=== PATIENT | male | born 1945 | race Caucasian/White ===

== ENCOUNTER 2017-04-04 10:57 | Outpatient (CLI) | payer MEDICARE, OTHER ==
[~2017-04-04] VITALS: Ht 177.8 cm; Wt 95.5 kg
--- NOTE | ~2017-04-04 | HEMODYNAMI ---
PATIENT:CHERYLE BERNARDO MEDICAL RECORD: [id number] : 41 LOCATION:DPETER ADMISSION DATE: 04/04/17 Generatedon:04/04/201714:14 Patient name: CHERYLE BERNARDO Patient #: [id number] SSN: : 1945 Date of study: 04/04/2017 Page: Of Hemodynamic Procedure Report Patient Data Patient Demographics Procedure consent was obtained First Name: CHERYLE Gender: Male Last Name: TOVA : 1945 [facility] Initial: [place] Age: 72 year(s) Patient #: [id number] Race: Unknown Additional ID: [id number] Contact details [address]: [address] [place] [address] State: [place] City: [place] Zip code: [address] Past Medical History Allergies: No known allergies Admission Admission Data Admission Date: 04/04/2017 Admission Time: 10:57 Admit Source: Other Procedure Procedure Types Cath Procedure Diagnostic Procedure LHC LHC w/Coronaries Miscellaneous Procedures Moderate Sedation up to 15 minutes Procedure Description Procedure Date Procedure Date: 04/04/2017 Procedure Start Time: 13:53 Procedure End Time: 14:10 Procedure Staff Name Function Kevin Munguia MD Performing Physician Lux Jackson RN Nurse Ruben Mccollum RT Scrub Nena Roche RT Monitor April Cole RN Nurse Procedure Data Cath Procedure Fluoroscopy Diagnostic fluoroscopy Total fluoroscopy Time: 2.9 time: 2.9 min min Diagnostic fluoroscopy Total fluoroscopy dose: 305 dose: 305 mGy mGy Contrast Material Contrast Material Type Amount (ml) Isovue 300 76 Entry Location Entry Primary Successful Side Size Upsize Upsize Entry Closure Schulz ccessful Closure Location (Fr) 1 (Fr) 2 (Fr) Remarks Device Remarks Radial Right 6 Fr Mechanical TR band artery Short Compression Femoral Right 5 Fr Exoseal artery Estimated blood loss: 10 ml Diagnostic catheters Device Type Used For End Catheter Placement Diagnostic Terumo 5Fr Procedure Armstrong 110cm catheter Cordis 5Fr JL 4.0 Procedure Catheter (MP) Cordis 5Fr 3DRC Catheter Procedure (MP) Cordis 5Fr Pigtail Procedure Catheter (MP) Procedure Complications No complications Procedure Medications Medication Administration Route Dosage Oxygen NC 2 l/min Heparin Flush Bag added to field 2 bags (1000units/500ml NS) 0.9% NaCl I.V. 100 ml/hr Radial Cocktail added to field 1 syringe (Verapomil 2mg/Nitro 400mcg/Heparin 1500units) Fentanyl I.V. 50 mcg Versed I.V. 1 mg Fentanyl I.V. 50 mcg Versed I.V. 1 mg Fentanyl I.V. 50 mcg Radial Cocktail I.A. 1 syringe (Verapomil 2mg/Nitro 400mcg/Heparin 1500units) Fentanyl I.V. 25 mcg Hemodynamics Rest Heart Rate: 44 (bpm) Pressure Samples Time Site Value (mmHg) Purpose Heart Use Rate(bpm) 14:04 LV 139/16,21 Snapshot 86 14:05 AO 159/58(106) Pullback 82 Gradients Valve Time Site Site 2 Mean SEP/DFP Peak To Heart Use 1 (mmHg) (sec/min) Peak Rate (mmHg) (bpm) Aortic 14:05 LV AO 15 20 82 159/58(106) Calculations Valve P-P Mean Valve Index Valve Source Name Gradient Area Flow (cm2) Aortic 15 15 Snapshots Pre Cath Intra NCS Post Cath Vital Signs Time Heart Resp SPO2 NIBP (mmHg) Rhythm Pain Sedation Rate (ipm) (%) Status Level (bpm) 13:32:14 70 19 98 104/82(103) NSR 0 (11) 10(A) , No pain 13:37:17 57 17 98 144/76(109) NSR 0 (11) 10(A) , No pain 13:42:25 62 16 100 130/75(95) NSR 0 (11) 10(A) , No pain 13:47:20 62 16 95 129/81(97) NSR 0 (11) 10(A) , No pain 13:51:34 68 17 95 122/74(85) NSR 0 (11) 10(A) , No pain 13:55:46 71 18 97 122/68(95) NSR 0 (11) 9(A) , No pain 13:59:57 79 17 96 119/78(98) NSR 0 (11) 9(A) , No pain 14:04:07 74 16 96 119/80(104) NSR 0 (11) 9(A) , No pain 14:08:15 79 15 95 132/83(112) NSR 0 (11) 10(A) , No pain Medications Time Medication Route Dose Verified Delivered Reason Notes Effectiveness by by 13:32:29 Oxygen NC 2 l/min Lux Wasserman Per Manuel Jackson RN physician RN 13:32:38 Heparin Flush added 2 bags Lux Wasserman used for Bag to Manuel Jackson RN procedure (1000units/500ml field RN NS) 13:32:50 0.9% NaCl I.V. 100 Lux Lux Per ml/hr Manuel Jackson RN physician RN 13:32:59 Radial Cocktail added 1 Lux Wasserman used for (Verapomil to syringe Manuel Jackson RN procedure 2mg/Nitro RN 400mcg/Heparin 1500units) 13:46:44 Fentanyl I.V. 50 mcg Lux Wasserman for sedation Manuel Jackson RN RN 13:46:51 Versed I.V. 1 mg Lux Wasserman for sedation Manuel Jackson RN RN 13:51:22 Fentanyl I.V. 50 mcg Lux Wasserman for sedation Manuel Jackson RN RN 13:51:26 Versed I.V. 1 mg Lux Wasserman for sedation Manuel Jackson RN RN 13:54:48 Fentanyl I.V. 50 mcg Lux Namy for sedation Manuel Jackson RN RN 13:58:00 Radial Cocktail I.A. 1 Lux Kleinory for ([facility]/Nitro GEOVANNY PRUETT 400mcg/Heparin 1500units) 14:00:54 Fentanyl I.V. 25 mcg Lux Lux for sedation Manuel Jackson RN collection administrator Log Time Note 12:47:39 Informed consent obtained and on chart 12:47:43 Admit Source: Other 13:21:46 Diagnostic Cath status Elective 13:21:59 Lux Jackson RN sent for patient. Start room use. 13:22:17 Time tracking: Regular hours 13:22:25 Plan of Care:Hemodynamics will remain stable., Cardiac rhythm will remain stable., Comfort level will be maintained., Respiratory function will remain adequate., Patient/ family verbilizes understanding of procedure., Procedure tolerated without complication., Recovers from procedure without complications.. 13:29:29 Patient received from Pre/Post Procedure Room to CCL 3 Alert and oriented. Tansferred to table in Supine position. 13:29:31 Warm blankets applied, and luis hugger turned on for patient comfort. 13:29:32 Correct patient and procedure confirmed by team. 13:29:34 ECG and BP/O2 sat monitors applied to patient. 13:29:36 Vital chart was started 13:29:39 Baseline sample Acquired. 13:29:41 Baseline sample Acquired. 13:29:46 Full Disclosure recording started 13:30:04 H&P Date Dictated: 04/02/2017 Within 30 days and on chart., H&P Addendum completed by physician on day of procedure. (MUST COMPLETE FOR ALL OUTPATIENTS). 13:30:06 Pre-procedure instructions explained to patient. 13:30:08 Family in waiting room. 13:30:12 Patient NPO since Midnight. 13:30:18 Patient allergic to No known allergies 13:30:22 Is the patient allergic to Iodine/contrast media? No. 13:30:23 Is patient on blood thinner?No 13:30:27 Patient diabetic? No. 13:30:36 Previous problem with sedation/anesthesia? No ? 13:30:42 Snore? Yes 13:30:43 Sleep apnea? Yes 13:30:53 Airway obstruction? Yes COPD 13:31:04 Dentures? No ? 13:31:11 Patient pain scale 0/10 ?. 13:31:17 IV patent on arrival in left forearm with 0.9% NaCl at KVO. 13:31:21 ECG and BP/O2 sat monitors applied to patient. 13:31:43 Lab results completed and on chart. 13:31:47 Right Radial & Right Groin area was prepped with chlora-prep and draped in sterile fashion 13:31:49 Alarms reviewed by R. N. 13:31:49 Sharps counted by scrub and verified by R.N. 13:31:50 Physician paged 13:31:52 Physician arrived 13:32:29 Oxygen 2 l/min NC was administered by Lux Jackson RN; Per physician; 13:32:38 Heparin Flush Bag (1000units/500ml NS) 2 bags added to field was administered by Lux Jackson RN; used for procedure; 13:32:50 0.9% NaCl 100 ml/hr I.V. was administered by Lux Jackson RN; Per physician; 13:32:59 Radial Cocktail (Verapomil 2mg/Nitro 400mcg/Heparin 1500units) 1 syringe added to field was administered by Lux Jackson RN; used for procedure; 13:40:54 Baseline sample Acquired. 13:41:03 Use device set Radial Dx 13:41:05 Acist Syringe opened to sterile field. 13:41:05 Medline Cath Pack opened to sterile field. 13:41:05 Bag Decanter opened to sterile field. 13:41:06 Terumo 6Fr Slender Glidesheath opened to sterile field. 13:41:06 St Asif 260cm J .035 wire opened to sterile field. 13:41:07 Acist Hand Control opened to sterile field. 13:41:07 Acist Manifold opened to sterile field. 13:41:08 Tegaderm 4 x 4 opened to sterile field. 13:41:08 MBrace Wrist Support opened to sterile field. 13:46:23 --------ALL STOP TIME OUT------ 13:46:23 Final Timeout: patient, procedure, and site verified with staff and physician. All members of the team are in agreement. 13:46:26 Right Radial & Right Groin site verified by team. 13:46:30 Physical assessment completed. ASA score P 2 - A patient with mild systemic disease as per Kevin Munguia MD. 13:46:36 Sedation plan: IV Moderate Sedation Versed, Fentanyl 13:46:44 Fentanyl 50 mcg I.V. was administered by Lux Jackson RN; for sedation; 13:46:51 Versed 1 mg I.V. was administered by Lux Jackson RN; for sedation; 13:49:19 Zero performed for pressure channel P1 13:49:46 Zero performed for pressure channel P1 13:49:55 Zero performed for pressure channel P1 13:51:22 Fentanyl 50 mcg I.V. was administered by Lux Jackson RN; for sedation; 13:51:26 Versed 1 mg I.V. was administered by Lux Jackson RN; for sedation; 13:52:30 Procedure started. 13:53:47 Local anesthetic to right radial artery with Lidocaine 2% by Kevin Munguia MD.INITIAL ACCESS ONLY 13:53:59 A 6 Fr Short sheath was inserted into the Right Radial artery 13:54:46 A Diagnostic Terumo 5Fr Armstrong 110cm catheter was advanced over the wire and used for Procedure. 13:54:48 Fentanyl 50 mcg I.V. was administered by Lux Jackson RN; for sedation; 13:57:03 Catheter removed. 13:57:14 Use device set Multipack Set 13:57:28 Terumo 5Fr [place] Sheath opened to sterile field. 13:57:30 Diagnostic Infinity 5Fr Multipack catheter opened to sterile field. 13:57:39 Local anesthetic to right femoral artery with Lidocaine 2% by Kevin Munguia MD.ADDITIONAL ACCESS 13:58:00 Radial Cocktail (Verapomil 2mg/Nitro 400mcg/Heparin 1500units) 1 syringe I.A. was administered by Kevin Munguia MD; for vasodilation; 13:58:10 A 5 Fr sheath was inserted into the Right Femoral artery 13:59:07 A Cordis 5Fr JL 4.0 Catheter (MP) was advanced over the wire and used for Procedure. 14:00:54 Fentanyl 25 mcg I.V. was administered by Lux Jackson RN; for sedation; 14:02:08 Catheter removed. 14:02:30 A Cordis 5Fr 3DRC Catheter (MP) was advanced over the wire and used for Procedure. 14:03:48 Catheter removed. 14:04:03 A Cordis 5Fr Pigtail Catheter (MP) was advanced over the wire and used for Procedure. 14:05:29 EF : 55 % 14:05:32 Catheter removed. 14:05:47 Cordis 5Fr Exoseal opened to sterile field. 14:05:47 Terumo TR Band Standard opened to sterile field. 14:06:06 Sheath removed intact; hemostasis achieved with Exoseal to the Right Femoral artery. 14:06:26 Sheath removed intact; hemostasis achieved with Mechanical Compression to the Right Radial artery. 14:06:31 Procedure ended.(Physican Out) 14:06:52 Fluoroscopy time 02.90 minutes. 14:06:59 Fluoroscopy dose: 305 mGy 14:06:59 Flurop Dose total: 305 14:07:14 Contrast amount:Isovue 300 76ml. 14:07:16 Sharps counted by scrub and verified by R.N. 14:07:21 TR band inflated with 10cc of air. 14:07:22 Insertion/operative site no bleeding no hematoma. 14:07:27 Post right femoral artery:stable 14:07:28 Post Procedure Pulses reassessed and unchanged 14:07:33 Post-procedure physical assessment completed. ASA score P 2 - A patient with mild systemic disease as per Kevin Munguia MD. 14:08:17 Post procedure rhythm: unchanged. 14:08:25 Estimated blood loss: 10 ml 14:08:28 Post procedure instruction explained to patient.Patient verbalizes understanding. 14:08:40 Procedure type changed to Cath procedure, Diagnostic procedure, LHC, LHC w/Coronaries, Miscellaneous Procedures, Moderate Sedation up to 15 minutes 14:08:41 Procedure and supply charges have been captured, reviewed, submitted and are correct. 14:09:04 Procedure Complication : No complications 14:09:43 Vital chart was stopped 14:09:45 See physician's report for complete and final results. 14:09:55 Report given to Pre/Post Procedure Room. 14:09:59 Patient transfered to Pre/Post Procedure Room with Stretcher. 14:10:02 Procedure ended. 14:10:02 Full Disclosure recording stopped Device Usage Item Name Manufacture Quantity Catalog Hospital Part Current Minimal Lot# / Number Charge Number Stock Stock Serial# Code Acist Acist 1 91015 723347 048129 416750 20 Syringe Medical Systems Inc Medline Cardinal 1 [id number] 622239 92180 331504 5 Cath Pack Health Bag Microtek 1 2001S 565201 60805 150353 5 Decanter [employer] Inc. Terumo 6Fr Terumo 1 [id number] 587929 615691 481759 [address] Asif St Asif 1 436233 503148 319774 500821 30 260cm J .035 wire Acist Hand Acist 1 96953 104827 992587 157827 5 Control Medical Systems Inc Acist Acist 1 20277 234092 292995 164830 5 Manifold Medical Systems Inc Tegaderm 4 3M 1 1626W 236932 110843 509201 5 x 4 MBrace Advanced 1 140-0250-00 490509 89208 356237 5 Wrist Vascular Support Dynamics Diagnostic Terumo 1 40-5855 356248 978805 536160 5 Terumo 5Fr Armstrong 110cm catheter Terumo 5Fr Terumo 1 [id number] 681821 092008 901832 40 [place] Sheath Diagnostic Cardinal 1 [id number] 941693 48933 543698 30 Infinity Health 5Fr Multipack catheter Cordis 5Fr Cardinal 1 098822 5 JL 4.0 Health Catheter (MP) Cordis 5Fr Cardinal 1 585865 5 3DRC Health Catheter (MP) Cordis 5Fr Cardinal 1 224484 5 Pigtail Health Catheter (MP) Cordis 5Fr Cardinal 1 EX500 271440 673611 318044 10 [facility] Health Terumo TR Terumo 1 [id number] 847752 531222 230605 40 Band Standard Signature Audit [place] Stage Time Signature Unsigned Intra-Procedure 04/04/2017 Nena Roche 2:14:37 PM RT(R) Signatures Monitor : Nena Roche Signature : RT Date : Time : [place] [address] [place] [address]
[~2017-04-04 10:57] MED LIST: AMBIEN10 MG PO; LIPITOR40 MG PO; LISINOPRIL10 MG PO; PLAVIX75 MG PO
[2017-04-04 11:26] VITALS: BP 177/79; Ht 177.8 cm; Wt 95.5 kg
[2017-04-04] MEDS ORDERED: BAYER CHEWABLE81 MG PO (11:30)
[2017-04-04 11:35] LABS: BASOPHILS 0.8 % (0-2); EOSINOPHILS 5.1 % (0-7); HEMATOCRIT 49.5 % (42.0-54.0); HEMOGLOBIN 16.9 g/dL (13.5-17.5); IMMATURE GRANULOCYTES 0.4 % (0-5); LYMPHOCYTES 17.5 % (15-50); MCH 32.5 pg (26.0-34.0); MCHC 34.1 g/dL (31.0-37.0); MCV 95.2 fL (80.0-100.0); MEAN PLATELET VOLUME 10.9 fL (7.4-10.4); MONOCYTES 9.1 % (2-11); NEUTROPHILS 67.1 % (40-80); PLATELET COUNT 191 10x3/uL (130-400); RDW 13.2 % (11.5-14.5); WBC 7.2 10x3/uL (4.8-10.8)
[2017-04-04 11:49] LABS: CALC OSMOLALITY 282 mosm/kg (275-300); CALCIUM 8.2 mg/dL (8.5-10.1); CHLORIDE - SERUM 106 mmol/L (98-107); GLUCOSE 105 mg/dL (74-106); POTASSIUM - SERUM 4.3 mmol/L (3.5-5.1); SODIUM 141 mmol/L (136-145); UREA NITROGEN 17 mg/dL (7-18); eGFR NON AFRICAN AMERICAN 78 mL/min (90-120)
--- NOTE | 2017-04-04 14:25 | NUR ---
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 PT IS DROWSY, DENIES ANY C/O. TR BAND TO RIGHT WRIST IS CDI, AREA FREE FROM BLEEDING OR HEMATOMA. FINGERS WARM AND CAP REFILL IS BRISK. DRESSING TO RIGHT GROIN IS CDI, AREA SOFT AND NONTENDER. PEDAL PULSES PALPABLE. PT INSTRUCTED TO KEEP RIGHT LEG STRAIGHT AND HEAD TO PILLOW AND PT VERBALIZES UNDERSTANDING. VSS. SINUS RHYTHM WITH PVC'S ON MONITOR. RR EVEN AND UNLABORED.
--- NOTE | 2017-04-04 14:47 | NUR ---
1440 VSS, AT BEDSIDE. CATH SITES FREE FROM BLEEDING OR HEMATOMA.
--- NOTE | 2017-04-04 15:03 | NUR ---
1500 PO FLUIDS SERVED. AT BEDSIDE. VSS. RR EVEN AND UNLABORED. CALL LIGHT IN REACH. DRESSINGS ARE BOTH CDI, NO BLEEDING OR HEMATOMA.
--- NOTE | 2017-04-04 15:20 | NUR ---
1520 TR BAND DEFLATION BEGUN WITH NO BLEEDING OR HEMATOMA NOTED. DRESSING TO RIGHT GROIN IS CDI, AREA IS SOFT AND NONTENDER. PEDAL PULSES PALPABLE. PT DENIES ANY C/O. KIM PO FLUIDS WITH NO C/O NAUSEA. STATES DOES NOT WANT A SANDWICH AT THIS TIME. AT BEDSIDE. CALL LIGHT IN REACH, VSS.
--- NOTE | 2017-04-04 16:05 | NUR ---
1550 DR HENLEY HAS ROUNDED ON PT. PT DENIES NEEDS AT THIS TIME. TR BAND WITH NO BLEEDING OR HEMATOMA NOTED. FINGERS WARM AND CAP REFILL IS BRISK. PT DENIES NEEDS AT THIS TIME.
--- NOTE | 2017-04-04 16:43 | NUR ---
1620 TR BAND DEFLATION COMPLETE, NO BLEEDING OR HEMATOMA NOTED. EXOSEAL DRESSING TO RIGHT GROIN IS CDI, NO BLEEDING OR HEMATOMA NOTED. AREA SOFT AND NONTENDER. IV DC'D WITH CATH INTACT. REVIEWED DC INSTRUCTIONS WITH PT AND WHO VERBALIZE UNDERSTANDING. 1630 PT AMBULATED TO THE BATHROOM AND VOIDED QS. 1635 2X2/TEGADERM TO WRIST CATH SITE IS CDI, NO BLEEDING OR HEMATOMA. RIGHT GROIN DRESSING STABLE WITH NO BLEEDING OR HEMATOMA. PT DENIES ANY C/O UPON DC. PT ESCORTED TO PRIVATE AUTO VIA WC BY NURSE WITH DRIVING HIM HOME.
--- NOTE | 2017-04-05 11:07 | OP ---
PATIENT NAME: CHERYLE BERNARDO MEDICAL RECORD: [id number] :41 LOCATION:D.CAT ADMISSION DATE: SURGEON: ANUM HENLEY MD DATE OF OPERATION: 04/04/2017 PROCEDURES: Left heart catheterization, selective coronary angiography, right femoral artery approach. CATHETERS: A 5-Bahamian sheath, 5/4 left and right Darrius, 5/4 pig. The procedure was well tolerated. The patient returned to sahu. Sheath removed. ExoSeal device placed. FINDINGS: Left ventriculography in 30-degree ZARATE view: Normal wall motion, normal systolic function. CORONARY ANATOMY: LEFT MAIN: Left main is free of disease. LAD: Free of disease in the diagonal system. Area of previous stenting is widely patent. CIRCUMFLEX: Free of disease. RIGHT CORONARY ARTERY: Free of disease. IMPRESSION: Widely patent stents. No progression of kake disease, normal systolic function, noncardiac chest pain. TRANSINT:[id number] Voice Confirmation ID: [id number] DOCUMENT ID: [id number] ANUM HENLEY MD at 1107 CC: [id number] DICTATION DATE: 04/04/17 1411 ADVISORY SERVICES ASSOCIATE: 04/04/17 1859 DEP CLI 04/04/17 [facility] [address] [place] [address]
== END 2017-04-04 16:35 | disposition home or self-care (01) ==
LOC: D.CATH 10:57
PROVIDERS: Internal Medicine Interventional Cardiology
DX: I25.119 Atherosclerotic heart disease of native coronary artery with unspecified angina pectoris (principal); E78.5 Hyperlipidemia, unspecified; Z01.812 Encounter for preprocedural laboratory examination

== ENCOUNTER → 2019-01-28 12:16 | Outpatient (CLI) | payer MEDICARE, OTHER ==
[2017-04-04 11:26] VITALS: BMI 30.1
[~2019-01-28 12:16] MED LIST changes: +BAYER CHEWABLE81 MG PO
--- NOTE | 2019-02-03 14:37 | ST ---
PATIENT:CHERYLE BERNARDO MEDICAL RECORD: [id number] SEX: M LOCATION:[facility] ORDER #: ADMISSION DATE: 01/28/19 AGE OF PATIENT: 73 REFERRING PHYSICIAN: INTERPRETING PHYSICIAN: MARGARITO DE LA PAZ MD DATE OF SERVICE: 01/28/2019 Nuclear Stress Test INDICATION: Angina and coronary artery disease and hypertension. He was exercised on standard Aleksandar protocol for 8 minutes and 30 seconds achieving greater than 85% of max target heart rate response with 31 mCi of sestamibi injected at peak stress, 11 mCi used previously for rest images. FINDINGS: Gated SPECT reveals a dilated cardiomyopathy with decreased ejection fraction at 39%. SPECT IMAGING: Cardiolite was used as myocardial perfusion agent. There is a mixed perfusion defect inferiorly and apically. This is partially fixed, partially reversible. This includes the basal, mid, apical, and anterior segments as well as the apex itself. OVERALL IMPRESSION: This is an abnormal nuclear stress test with a mixed perfusion defect inferoapically partially fixed, partially reversible with LV dilatation and ejection fraction 39%, suggestive with hemodynamically significant coronary artery disease, previous myocardial infarction and ongoing ischemia, would proceed with coronary angiography as a followup study. TRANSINT:[id number] Voice Confirmation ID: [id number] DOCUMENT ID: [id number] MARGARITO DE LA PAZ MD at 1437 CC: [id number] DICTATION DATE: 01/30/19 1323 SUPERVISOR HOME ENERGY CONSULTANT: 01/31/19 0206 DEP CLI 01/28/19 [place] [id number]
== END | disposition home or self-care (01) ==
LOC: D.HCCARDIO 12:16
PROVIDERS: ATTEND Internal Medicine Interventional Cardiology
DX: I25.119 Atherosclerotic heart disease of native coronary artery with unspecified angina pectoris (principal)

== ENCOUNTER 2019-02-16 11:09 | Outpatient (CLI) | payer MEDICARE, OTHER ==
[~2019-02-16] VITALS: Ht 177.8 cm; Wt 84.1 kg
--- NOTE | ~2019-02-16 | HEMODYNAMI ---
PATIENT:CHERYLE BERNARDO MEDICAL RECORD: [id number] : 41 LOCATION:DPETER ADMISSION DATE: 02/16/19 Generatedon:02/16/201913:42 Patient name: CHERYLE BERNARDO Patient #: [id number] SSN: : 1945 Date of study: 02/16/2019 Page: Of Hemodynamic Procedure Report Patient Data Patient Demographics Procedure consent was obtained First Name: CHERYLE Gender: Male Last Name: TOVA : 1945 [facility] Initial: HERCULES Age: 73 year(s) Patient #: [id number] Race: Unknown Additional ID: [id number] Contact details [address]: [address] [place] [address] State: [place] City: [place] Zip code: [address] Past Medical History Allergies: No allergy information Admission Admission Data Admission Date: 02/16/2019 Admission Time: 11:09 Height (in.): 70 BSA: 2.02 (m2) Height (cm.): 177.8 BMI: 26.57 (kg/m2) Weight (lbs.): 185.19 Weight (kg.): 84 Lab Results Lab Result Date: 02/16/2019 Lab Result Time: 0:00 Biochemistry Name Units Result Min Max BUN mg/dl 19 --(----)*- 7 18 Creatinine mg/dl 0.9 --(-*--)-- 0.6 1.3 CBC Name Units Result Min Max Hematocrit % 47.6 --(-*--)-- 42 54 Hemoglobin g/dl 16.8 --(---*)-- 13.5 17.5 Procedure Procedure Types Cath Procedure Diagnostic Procedure [facility] w/Coronaries Sedation Charges Moderate Sedation up to 15 minutes PCI Procedure Coronary Stent Coronary Stent Initial Procedure Description Procedure Date Procedure Date: 02/16/2019 Procedure Start Time: 13:11 Procedure End Time: 13:36 Procedure Staff Name Function Kevin Vasquez MD Performing Physician Jon Ayoub RT Monitor Kelise Craven RT Scrub Lux Jackson RN Nurse Procedure Data Cath Procedure Fluoroscopy Diagnostic fluoroscopy Total fluoroscopy Time: 4.9 time: 4.9 min min Diagnostic fluoroscopy Total fluoroscopy dose: dose: 1024 mGy 1024 mGy Contrast Material Contrast Material Type Amount (ml) Isovue 370 106 Entry Location Entry Primary Successful Side Size Upsize 1 Upsize Entry Closure Schulz ccessful Closure Location (Fr) (Fr) 2 (Fr) Remarks Device Remarks Femoral Right 5 Fr 6 Fr 6 Fr Exoseal artery Mid-Length Short Estimated blood loss: 10 ml Diagnostic catheters Device Type Used For End Catheter Placement MULTIPACK JL 4.0 5Fr Procedure catheter DIAGNOSTIC JL 5 5Fr Procedure catheter ([id number]) MULTIPACK 3DRC 5Fr Procedure catheter MULTIPACK Pigtail 5 Fr Procedure catheter Procedure Complications No complications Procedure Medications Medication Administration Route Dosage Oxygen etCO2 Nasal cannula 2 l/min Heparin Flush Bag added to field 2 bags (1000units/500ml NS) 0.9% NaCl I.V. 100 ml/hr Lidocaine 2% added to field 20 Fentanyl I.V. 50 mcg Versed I.V. 1 mg Fentanyl I.V. 50 mcg Versed I.V. 1 mg Fentanyl I.V. 50 mcg Heparin Bolus I.V. 4000 units Fentanyl I.V. 50 mcg Integrilin (Bolus I.V. 7.3 ml 2mg/ml) Integrilin (Bolus wasted 2.7 ml 2mg/ml) Hemodynamics Rest BSA: 2.02 (m2) HGB: 16.8 (g/dl) O2 Consumption: Estimated: 229.71 (ml/min) O2 Co nsumption indexed: Estimated:113.72 (ml/min/m) Heart Rate: 67 (bpm) Pressure Samples Time Site Value (mmHg) Purpose Heart Use Rate(bpm) 13:32 LV 148/7,10 Snapshot 86 Gradients Valve Time Site Site Mean SEP/DFP Peak To Heart Use 1 2 (mmHg) (sec/min) Peak Rate (mmHg) (bpm) Aortic 13:32 LV AO 83 Snapshots Pre Cath Intra NCS Post Cath Vital Signs Time Heart Resp SPO2 etCO2 NIBP (mmHg) Rhythm Pain Sedation Rate (ipm) (%) (mmHg) Status Level (bpm) 13:08:22 66 17 98 32.1 173/86(144) NSR 0 (11) 10(A) , No pain 13:12:50 70 17 96 38.8 165/85(124) NSR 0 (11) 10(A) , No pain 13:18:13 83 16 98 16.4 150/81(113) NSR 0 (11) 9(A) , No pain 13:23:31 79 17 96 17.9 157/83(126) NSR 0 (11) 9(A) , No pain 13:28:40 77 17 97 38.8 155/90(123) NSR 0 (11) 9(A) , No pain 13:34:00 86 16 95 36.6 161/70(132) NSR 0 (11) 9(A) , No pain 13:36:56 80 17 96 38.8 154/76(125) NSR 0 (11) 9(A) , No pain Medications Time Medication Route Dose Verified Delivered Reason Notes Effectiveness by by 13:04:13 Oxygen etCO2 2 Kevin Wasserman Per physician Nasal l/min [facility] Russel Jackson RN cannula 13:04:23 Heparin Flush added 2 Kevin Wasserman used for Bag to bags [facility] Russel Jackson RN procedure (1000units/500ml field PRUETT NS) 13:04:31 0.9% NaCl I.V. 100 Kevin Wasserman Per physician ml/hr [facility] Russel Jackson RN, MD 13:04:46 Lidocaine 2% added 20ml Kevin Wasserman Per physician to vial [facility] Russel monahan MD 13:10:05 Fentanyl I.V. 50 Kevin Wasserman for sedation [facility] [place] [facility] Russel Jackson RN, MD 13:10:13 Versed I.V. 1 mg Kevin Wasserman for sedation [facility] Russel Jackson RN, MD 13:12:33 Fentanyl I.V. 50 Kevin Namy for sedation [facility] Russel Jackson RN, MD 13:12:38 Versed I.V. 1 mg Kevin Wasserman for sedation [facility] Russel Jackson RN, MD 13:14:52 Fentanyl I.V. 50 Kevin Namy for sedation [facility] [place] [facility] Russel Jackson RN, MD 13:27:32 Heparin Bolus I.V. 4000 Kevin Wasserman for units [facility] Russel sung MD 13:27:36 Fentanyl I.V. 50 Kevin Wasserman for sedation [facility] [place] [place] [facility] Russel Jackson RN, MD 13:27:53 Integrilin I.V. 7.3 Kevin Wasserman for (Bolus 2mg/ml) ml St Russel Jackson RN antiplatelet MD therapy 13:28:03 Integrilin wasted 2.7 Kevin Namy for (Bolus 2mg/ml) ml [facility] Russel Jackson RN antiplatelet MD therapy Procedure Log Time Note 12:40:34 Lux Jackson RN sent for patient. Start room use. 12:43:51 Signed procedure consent form obtained from patient. 12:43:52 Diagnostic Cath status Elective 12:43:53 Time tracking: Regular hours (M-F 7:00 - 5:00) 12:43:57 Plan of Care:Hemodynamics will remain stable., Cardiac rhythm will remain stable., Comfort level will be maintained., Respiratory function will remain adequate., Patient/ family verbilizes understanding of procedure., Procedure tolerated without complication., Recovers from procedure without complications.. 12:50:53 Patient Weight : 185.19 lbs 12:51:58 Patient Height : 70 inches 12:52:17 Patient allergic to No allergy information 12:52:58 Lab Result : Creatinine 0.9 mg/dl 12:52:58 Lab Result : BUN 19 mg/dl 12:52:58 Lab Result : Hemoglobin 16.8 g/dl 12:52:58 Lab Result : Hematocrit 47.6 % 12:54:44 Patient received from Pre/Post Procedure Room to CCL 1 Alert and oriented. Tansferred to table in Supine position. 12:54:45 Warm blankets applied, and luis hugger turned on for patient comfort. 12:54:46 Correct patient and procedure confirmed by team. 12:54:47 ECG and BP/O2 sat monitors applied to patient. 13:04:13 Oxygen 2 l/min etCO2 Nasal cannula was administered by Lux Jackson RN; Per physician; 13:04:23 Heparin Flush Bag (1000units/500ml NS) 2 bags added to field was administered by Lux Jackson RN; used for procedure; 13:04:31 0.9% NaCl 100 ml/hr I.V. was administered by Lux Jackson RN; Per physician; 13:04:46 Lidocaine 2% 20ml vial added to field was administered by Lux Jackson RN; Per physician; 13:06:57 Vital chart was started 13:07:45 Baseline sample Acquired. 13:07:54 Rhythm: sinus rhythm 13:07:55 Full Disclosure recording started 13:08:08 H&P Date Dictated: 01/22/2019 Within 30 days and on chart., H&P Addendum completed by physician on day of procedure. (MUST COMPLETE FOR ALL OUTPATIENTS). 13:08:09 Pre-procedure instructions explained to patient. 13:08:09 Pre-op teaching completed and patient verbalized understanding. 13:08:11 Family in waiting room. 13:08:12 Patient NPO since Breakfast. 13:08:14 Is the patient allergic to Iodine/contrast media? No. 13:08:15 Is patient on blood thinner?Yes 13:08:18 ACC The patient was administered the following blood thiners within the last 24 hours: ACCAspirin 13:08:20 Patient diabetic? No. 13:08:22 Previous problem with sedation/anesthesia? No ? 13:08:24 Snore? Yes 13:08:24 Sleep apnea? Yes 13:08:25 Deviated septum? No 13:08:26 Opens mouth fully? Yes 13:08:26 Sticks out tongue? Yes 13:08:28 Airway obstruction? No ? 13:08:30 Dentures? No ? 13:08:33 Pre procedure: right posterior tibial pulse 2+ Normal; easily identifiable; not easily obliterated 13:08:34 Patient pain scale 0/10 ?. 13:08:41 IV patent on arrival in left forearm with 0.9% NaCl at [facility]. 13:08:42 Lab results completed and on chart. 13:08:45 Right groin area was prepped with chlora-prep and draped in sterile fashion 13:08:46 Alarms reviewed by R. N. 13:08:47 Sharps counted by scrub and verified by R.N. 13:08:49 Use device set Femoral Dx 13:08:50 ACIST Syringe (60442) opened to sterile field. 13:08:50 Bag Decanter (2002S) opened to sterile field. 13:08:51 Medline Cath Pack ([id number]) opened to sterile field. 13:08:52 ACIST Hand Control (63830) opened to sterile field. 13:08:52 ACIST Manifold (07599) opened to sterile field. 13:08:53 Tegaderm 4 x 4 (1626W) opened to sterile field. 13:08:54 DIAGNOSTIC Multipack 5Fr catheter set (QR2129) opened to sterile field. 13:08:55 DIAGNOSTIC WIRE .035 260cm J wire (835090) opened to sterile field. 13:08:56 SHEATH 5FR [place] ([id number]) opened to sterile field. 13:09:03 Physician arrived 13::03 --------ALL STOP TIME OUT------ 13:09:03 Final Timeout: patient, procedure, and site verified with staff and physician. All members of the team are in agreement. 13:09:05 Right groin site verified by team. 13:: Maximum allowable Isovue 300 dose 300ml. Physician notified. (300ml for normal creatinines. For patients with creatinine of 1.7 or higher multiply weight(kg) x 5 divided by creatinine.) 13:09:13 Fire Safety Assessment: A--An alcohol-based skin anteseptic being used preoperatively., C--Open oxygen or nitrous oxide is being used., D--An ESU, laser, or fiber-optic light is being used. 13:09:16 Physical assessment completed. ASA score P 2 - A patient with mild systemic disease as per Kevin Vasquez MD. 13:09:19 Sedation plan: IV Moderate Sedation Medication:Versed, Fentanyl 13:10:05 Fentanyl 50 mcg I.V. was administered by Lux Jackson RN; for sedation; 13:10:13 Versed 1 mg I.V. was administered by Lux Jackson RN; for sedation; 13:11:17 Procedure started. 13:11:57 Local anesthetic to right femoral artery with Lidocaine 2% by Kevin Vasquez MD.INITIAL ACCESS ONLY 13:12:04 A 5 Fr sheath was inserted into the Right Femoral artery 13:12:09 A MULTIPACK JL 4.0 5Fr catheter was advanced over the wire and used for Procedure. 13:12:27 Zero performed for pressure channel P1 13:12:31 Zero performed for pressure channel P1 13:12:33 Fentanyl 50 mcg I.V. was administered by Lux Jackson RN; for sedation; 13:12:38 Versed 1 mg I.V. was administered by Lux Jackson RN; for sedation; 13:12:46 Zero performed for pressure channel P1 13:12:50 Zero performed for pressure channel P1 13:12:53 Zero performed for pressure channel P1 13:13:55 Catheter removed. unable to cannulate vessel. 13:14:38 A DIAGNOSTIC JL 5 5Fr catheter ([id number]) was advanced over the wire and used for Procedure. 13:14:52 Fentanyl 50 mcg I.V. was administered by Lux Jackson RN; for sedation; 13:15:41 LCA angiography performed. 13:17:15 Catheter exchanged over wire. 13:17:22 A MULTIPACK 3DRC 5Fr catheter was advanced over the wire and used for Procedure. 13:18:01 SHEATH 6FR [place] (OXW908) opened to sterile field. 13:18:15 WHISPER 300cm guide wire ([id number]) opened to sterile field. 13:18:26 RCA angiography performed. 13:18:43 Catheter exchanged over wire. 13:21:43 GUIDE 6FR XBLAD 3.5 catheter ([id number]) opened to sterile field. 13:21:44 INFLATOR Merit BasixCompak (QC3878) opened to sterile field. 13:21:50 SHEATH 6FR Destination (RSR01) opened to sterile field. 13:22:23 Sheath upsized to a 6 Fr Mid-Length. 13:22:30 6 Fr xblad 3.5 guide catheter was inserted over the wire 13:25:32 whisper wire advanced. 13:27:32 Heparin Bolus 4000 units I.V. was administered by Lux Jackson RN; for anticoagulation; 13:27:36 Fentanyl 50 mcg I.V. was administered by Lux Jackson RN; for sedation; 13:27:53 Integrilin (Bolus 2mg/ml) 7.3 ml I.V. was administered by Lux Jackson RN; for antiplatelet therapy; 13:28:03 Integrilin (Bolus 2mg/ml) 2.7 ml wasted was administered by Lux Jackson RN; for antiplatelet therapy; 13:28:44 Wire advanced across lesion. 13:29:09 Pre PCI Site: Point [place] pLAD has 80% stenosis. 13:30:01 Place stent Inflation Number: 1 A SHERYL RX 3.0 x 15 stent ([id number]) was prepped and advanced across the Prox LAD . The stent was deployed at 20 DEYANIRA for 0:10 (min:sec) . 13:30:18 Post PCI Site: Point Lay Ira pLAD has 0% stenosis. 13:30:33 Stent catheter was removed intact over wire. 13:30:34 Wire removed. 13:30:48 Catheter exchanged over wire. 13:30:54 A MULTIPACK Pigtail 5 Fr catheter was advanced over the wire and used for Procedure. 13:31:23 EXOSEAL 6Fr (EX600) opened to sterile field. 13:32:22 LV gram done using ZARATE 13:32:25 Injector settings: Ml/sec: 10, Volume: 20, 13:32:31 LV hemodynamics recorded. 13:32:35 EF : 40 % 13:32:46 Catheter removed. 13:33:03 Sheath upsized to a 6 Fr Short. 13:33:10 Sheath removed intact; hemostasis achieved with Exoseal to the Right Femoral artery. 13:33:12 Procedure ended.(Physican Out) 13:33:22 Fluoroscopy time 04.90 minutes. 13:33:26 Flurop Dose total: 1024 13:33:26 Fluoroscopy dose: 1024 mGy 13:33:29 Contrast amount:Isovue 370 106ml. 13:33:35 Sharps counted by scrub and verified by R.N. 13:33:36 Insertion/operative site no bleeding no hematoma. 13:34:42 Post-op/insertion site Right Femoral artery dressed using a 4 x 4 and Tegaderm. 13:34:45 Post right femoral artery:stable, soft, clean and dry 13:35:00 Post Procedure Pulses reassessed and unchanged 13:35:03 Post-procedure physical assessment completed. ASA score P 2 - A patient with mild systemic disease as per Kevin Vasquez MD. 13:35:05 Post procedure rhythm: unchanged. 13:35:07 Estimated blood loss: 10 ml 13:35:09 Post procedure instruction explained to patient.Patient verbalizes understanding. 13:35:10 Patient needs reinforcement of post procedure teaching. 13:35:27 Procedure type changed to Cath procedure, Diagnostic procedure, LHC, LHC w/Coronaries, Sedation Charges, Moderate Sedation up to 15 minutes, PCI procedure, Coronary Stent, Coronary Stent Initial 13:35:52 Procedure and supply charges have been captured, reviewed, submitted and are correct. 13:35:54 Procedure Complication : No complications 13:35:56 Vital chart was stopped 13:35:57 See physician's report for complete and final results. 13:35:58 Report given to Pre/Post Procedure Room. 13:36:01 Patient transfered to Pre/Post Procedure Room with Stretcher. 13:36:02 Procedure ended. 13:36:02 Full Disclosure recording stopped 13:36:06 End room use (Document Last) Intervention Summary Intervention Notes Time ActionType Lesion and Equipment Used Action# Pressure Duration Attributes 13:30:01 Place stent Prox LAD SHERYL RX 3.0 x 1 20 00:10 15 stent ([id number]) Device Usage Item Name Manufacture Quantity Catalog Hospital Part Current [facility] Lot# / Number Charge Number Stock Stock Serial# Code ACIST Syringe Acist 1 51852 058947 666141 518931 20 (25882) [employer] Inc Bag Decanter Microtek 1 2001S 804272 55626 821441 5 (2001S) Medical Inc. Medline Cath Medline 1 [id number] 794589 71166 379055 5 Pack ([id number]) ACIST Hand Acist 1 58406 356506 967601 873571 5 Control Medical (25362) Systems Inc ACIST Manifold Acist 1 40000 190968 798078 970173 5 (24469) Medical Systems Inc Tegaderm 4 x 4 3M 1 1626W 393477 780331 634542 5 (1626W) DIAGNOSTIC Cardinal 1 KL0850 376757 15638 102832 30 Multipack 5Fr Health catheter set (KF3497) DIAGNOSTIC St Asif 1 318104 118490 495532 031635 30 WIRE .035 260cm J wire (484221) SHEATH 5FR Terumo 1 SYO308 467133 189618 321679 5 [place] (WVQ821) MULTIPACK JL Cardinal 1 875814 5 4.0 5Fr Health catheter DIAGNOSTIC JL Cardinal 1 [id number] 237093 194399 887132 5 5 5Fr catheter Health ([id number]) MULTIPACK 3DRC Cardinal 1 182492 5 5Fr catheter Health SHEATH 6FR Terumo 1 AFU467 124548 711978 517023 40 [place] (OCY009) WHISPER 300cm Mccabe 1 [id number] 137802 566988 174492 5 guide wire Vascular ([id number]) GUIDE 6FR Cardinal 1 [id number] 364905 793724 215765 10 XBLAD 3.5 Health catheter ([id number]) INFLATOR Merit Merit 1 RN8565 279634 180354 814919 15 [facility] (ZD3782) SHEATH 6FR Terumo 1 RSR01 173251 97874 156648 5 Destination (RSR01) SHERYL RX 3.0 x Medtronic 1 [id number] 463095 7530114 382547 5 [id number] 15 stent ([id number]) MULTIPACK Cardinal 1 784263 5 Pigtail 5 Fr Health catheter EXOSEAL 6Fr Cardinal 1 EX600 711714 062676 054283 10 (EX600) Health Signature Audit [place] Stage Time Signature Unsigned Intra-Procedure 02/16/2019 Jon Ayoub 1:42:07 PM RT(R) Signatures Monitor : Jon Ayoub RT Signature : Date : Time : [id number] [place] [address]
[2019-02-16] MEDS ORDERED: CELEBREX200 MG PO (11:26)
[2019-02-16] MEDS ORDERED: ATIVAN1 MG PO (11:26)
[2019-02-16] MEDS ORDERED: COZAAR25 MG PO (11:27)
[2019-02-16 11:34] VITALS: BP 168/66; Ht 177.8 cm; Wt 84.1 kg
[2019-02-16 11:42] LABS: BASOPHILS 0.7 % (0-2); EOSINOPHILS 2.8 % (0-7); HEMATOCRIT 47.6 % (42.0-54.0); HEMOGLOBIN 16.8 g/dL (13.5-17.5); IMMATURE GRANULOCYTES 0.1 % (0-5); LYMPHOCYTES 18.6 % (15-50); MCH 32.9 pg (26.0-34.0); MCHC 35.3 g/dL (31.0-37.0); MCV 93.2 fL (80.0-100.0); MEAN PLATELET VOLUME 10.8 fL (7.4-10.4); NEUTROPHILS 68.8 % (40-80); PLATELET COUNT 191 10x3/uL (130-400); RBC 5.11 10x6/uL (4.20-6.10); RDW 13.6 % (11.5-14.5); WBC 6.9 10x3/uL (4.8-10.8)
[2019-02-16 11:55] LABS: CALC OSMOLALITY 282 mosm/kg (275-300); CALCIUM 8.7 mg/dL (8.5-10.1); CARBON DIOXIDE 28.2 mmol/L (21.0-32.0); CHLORIDE - SERUM 106 mmol/L (98-107); CREATININE - SERUM 0.9 mg/dL (0.6-1.3); GLUCOSE 100 mg/dL (74-106); POTASSIUM - SERUM 3.9 mmol/L (3.5-5.1); SODIUM 141 mmol/L (136-145); UREA NITROGEN 19 mg/dL (7-18); eGFR NON AFRICAN AMERICAN 87 mL/min (90-120)
[2019-02-16] MEDS ORDERED: PLAVIX75 MG PO (13:44)
--- NOTE | 2019-02-16 14:05 | NUR ---
2L NC, NO RESP DISTRESS. RIGHT GROIN 6F EXOSEAL CDI, NO BLEEDING OR HEMATOMA NOTED. NO C/O PAIN OR NAUSEA. VSS. FAMILY AT BEDSIDE, CALL LIGHT WITHIN REACH.
--- NOTE | 2019-02-16 14:35 | NUR ---
RESTING QUIETLY WITH EYES CLOSED. RIGHT GROIN 6F EXOSEAL CDI, NO BLEEDING OR HEMATOMA NOTED. NO C/O AT THIS TIME. VSS. WILL CONTINUE TO MONITOR.
--- NOTE | 2019-02-16 14:50 | NUR ---
CONTINUES TO REST COMFORTABLY WITH NO C/O. RIGHT GROIN 6F EXOSEAL CDI, NO BLEEDING OR HEMATOMA NOTED. DENIES ANY NEEDS. VSS. CALL LIGHT WITHIN REACH.
--- NOTE | 2019-02-16 15:03 | OP ---
PATIENT NAME: CHERYLE BERNARDO MEDICAL RECORD: [id number] :41 LOCATION:D.CAT ADMISSION DATE: SURGEON: ANUM HENLEY MD DATE OF OPERATION: 02/16/2019 PROCEDURE: Left heart catheterization, selective coronary angiography plus PTCA and stent, right femoral artery approach. CATHETERS: A 5-Kazakh sheath, 5/4 left and right Darrius, 5/4 pig. The procedure was well tolerated. We then exchanged for a long 6-Kazakh sheath for intervention. FINDINGS: Left ventriculography in 30-degree ZARATE view shows global hypo. Overall LV function with reduced EF, estimated at 40% to 45%. CORONARY ANATOMY: LEFT MAIN: Left main is free of disease. LAD: The area of previous stenting has about 80% stenosis, extending from first diagonal to second diagonal. There is a true ramus branch. It has about 80% elongated stenosis at its origin. CIRCUMFLEX: Free of disease. RIGHT CORONARY ARTERY: Dominant artery, gives rise to PDA, free of disease. IMPRESSION AND PLAN: PTCA and stenting to LAD momentarily. DESCRIPTION OF PROCEDURE: The 5-Kazakh sheath was exchanged for a long 6-Kazakh sheath. EBU 4 guiding catheter provided good guide catheter support followed by 300 cm Whisper wire which was placed across the occluded LAD down this portion of vessel. Stent deployed was a 3.0 x 15 mm Rod drug-eluting stent up to 20 atmospheres for 45 seconds. Final angiography shows excellent resolution of 80% stenosis with no significant residual. GAB flow was 3 throughout the procedure. Heparin and Integrilin were used during the case. Sheath was closed with ExoSeal device. Plan for intervention of the ramus at a later date. TRANSINT:[id number] Voice Confirmation ID: [id number] DOCUMENT ID: [id number] ANUM HENLEY MD at 1503 CC: [id number] DICTATION DATE: 02/16/19 1344 ICING MACHINE OPERATOR: 02/16/19 1453 [facility] [address] [place] [id number]
--- NOTE | 2019-02-16 15:20 | NUR ---
2L NC WITH NO RESP DISTRESS. RIGHT GROIN 6F EXOSEAL CDI, NO BLEEDING OR HEMAOMA NOTED. VSS. WILL CONTINNEU TO MONITOR.
--- NOTE | 2019-02-16 16:31 | NUR ---
HOB ELEVATED 30 DEGREES. RIGHT GROIN 6F EXOSEAL CDI, NO BLEEDING NOTED. SIPPING ON DRINK AND EATING SANDWICH WITH NO C/O NAUSEA. VSS. WILL CONTINUE TO MONITOR CLOSELY.
--- NOTE | 2019-02-16 17:00 | NUR ---
DISCHARGE INSTRUCTIONS ALONG WITH PLAVIX PRESCRIPTION GIVEN TO PT AND , BOTH VERBALIZED UNDERSTANDING. LEFT PIV D/C'D WITH CATHETER INTACT, BAND AID TO SITE. UP TO BEDSIDE TO GET DRESSED. AMBULATED TO RESTROOM.
--- NOTE | 2019-02-16 17:15 | NUR ---
TAKEN OUT VIA WHEELCHAIR BY CATH TUBE INSPECTOR. LEFT FACILITY WITH FAMILY AND ALL PERSONAL BELONGINGS.
== END 2019-02-16 17:15 | disposition home or self-care (01) ==
LOC: D.CATH 11:09
PROVIDERS: ATTEND Internal Medicine Interventional Cardiology
DX: I25.119 Atherosclerotic heart disease of native coronary artery with unspecified angina pectoris (principal); Z01.812 Encounter for preprocedural laboratory examination
CPT/HCPCS: C9600; 93458

== ENCOUNTER 2019-03-25 11:08 | Outpatient (CLI) | payer MEDICARE, OTHER ==
[~2019-03-25] VITALS: Ht 177.8 cm; Wt 86.4 kg
--- NOTE | ~2019-03-25 | HEMODYNAMI ---
PATIENT:CHERYLE BERNARDO MEDICAL RECORD: [id number] : 41 LOCATION:DPETER ADMISSION DATE: 03/25/19 Generatedon:03/25/201913:42 Patient name: CHERYLE BERNARDO Patient #: [id number] SSN: : 1945 Date of study: 03/25/2019 Page: Of Hemodynamic Procedure Report Patient Data Patient Demographics Procedure consent was obtained First Name: CHERYLE Gender: Male Last Name: TOVA : 1945 [facility] Initial: COLERAIN Age: 74 year(s) Patient #: [id number] Race: Unknown Additional ID: [id number] Contact details Address: [address] [place] [address] State: [place] City: [place] Zip code: [address] Past Medical History Allergies: No known allergies Admission Admission Data Admission Date: 03/25/2019 Admission Time: 11:08 Weight (lbs.): 189.6 Weight (kg.): 86 Lab Results Lab Result Date: 03/25/2019 Lab Result Time: 0:00 Biochemistry Name Units Result Min Max BUN mg/dl 14 --(--*-)-- 7 18 Creatinine mg/dl 0.9 --(-*--)-- 0.6 1.3 eGFR ml/min 87 -*(----)-- 90 120 NONAFRICAN CBC Name Units Result Min Max Hematocrit % 45.5 --(-*--)-- 42 54 Hemoglobin g/dl 16.1 --(--*-)-- 13.5 17.5 Procedure Procedure Types Cath Procedure Diagnostic Procedure Sedation Charges Moderate Sedation up to 30 minutes PCI Procedure Coronary Stent Coronary Stent Initial Procedure Description Procedure Date Procedure Date: 03/25/2019 Procedure Start Time: 13:21 Procedure End Time: 13:38 Procedure Staff Name Function Kevin Vasquez MD Performing Physician Kelsie Craven RT Monitor Jon Ayoub RT Scrub Taye Dorantes RN Nurse Procedure Data Cath Procedure Fluoroscopy Diagnostic fluoroscopy Total fluoroscopy Time: 5.3 time: 5.3 min min Diagnostic fluoroscopy Total fluoroscopy dose: 815 dose: 815 mGy mGy Contrast Material Contrast Material Type Amount (ml) Isovue 300 80 Entry Location Entry Primary Successful Side Size Upsize Upsize Entry Closure Succes sful Closure Location (Fr) 1 (Fr) 2 (Fr) Remarks Device Remarks Femoral Right 6 Fr Exoseal artery Short Estimated blood loss: 10 ml Procedure Complications No complications Procedure Medications Medication Administration Route Dosage Oxygen etCO2 Nasal cannula 2 l/min Lidocaine 2% added to field 20 Heparin Flush Bag added to field 2 bags (1000units/500ml NS) 0.9% NaCl I.V. 100 ml/hr Versed I.V. 2 mg Fentanyl I.V. 100 mcg Heparin Bolus I.V. 4000 units Versed I.V. 2 mg Fentanyl I.V. 100 mcg Versed I.V. 2 mg Hemodynamics Rest HGB: 16.1 (g/dl) Heart Rate: 71 (bpm) Snapshots Pre Cath Intra NCS Post Cath Vital Signs Time Heart Resp SPO2 etCO2 NIBP (mmHg) Rhythm Pain Sedation Rate (ipm) (%) (mmHg) Status Level (bpm) 13:04:50 62 14 100 31.6 148/77(94) NSR 0 (11) 10(A) , No pain 13:09:08 57 16 98 30.1 145/76(98) NSR 0 (11) 10(A) , No pain 13:13:36 65 11 95 11.3 142/75(110) NSR 0 (11) 10(A) , No pain 13:17:58 73 10 95 0 135/73(97) NSR 0 (11) 10(A) , No pain 13:21:48 67 12 98 35.4 138/84(111) NSR 0 (11) 9(A) , No pain 13:25:41 73 12 94 0 125/74(97) NSR 0 (11) 9(A) , No pain 13:30:14 76 12 97 16.5 139/67(100) NSR 0 (11) 9(A) , No pain 13:34:11 75 14 97 34.6 143/63(112) NSR 0 (11) 9(A) , No pain 13:38:29 65 12 98 33.1 138/69(88) NSR 0 (11) 10(A) , No pain Medications Time Medication Route Dose Verified Delivered Reason Notes Effectiveness by by 13:07:03 Oxygen etCO2 2 Kevin Brooklynie used for Nasal l/min [facility] Russel Dorantes RN procedure cannula 13:07:09 Lidocaine 2% added 20ml Kevin Kevin used for to vial [facility] procedure field MD PRUETT 13:07:19 Heparin Flush added 2 Kevin Kevin used for Bag to bags [facility] procedure (1000units/500ml field MD PRUETT NS) 13:07:28 0.9% NaCl I.V. 100 Kevin Kothari Per physician ml/hr [facility] Russel Dorantes RN, MD 13:13:21 Versed I.V. 2 mg Kevin Barahonaie for sedation [facility] Russel Dorantes RN, MD 13:13:27 Fentanyl I.V. 100 Kevin Buffie for sedation mcg [facility] Russel Dorantes RN, MD 13:18:01 Versed I.V. 2 mg Kevin Buffie for sedation St Russel Dorantes RN, MD 13:18:07 Fentanyl I.V. 100 Kevin Barahonaie for sedation mcg [facility] Russel Dorantes RN, MD 13:25:56 Heparin Bolus I.V. 4000 Kevin Barahonaie for verif ied units St Russel Dorantes RN anticoagulation with dr MD ball 13:28:39 Versed I.V. 2 mg Kevin Barahonaie for sedation St Russel Dorantes RN, MD Procedure Log Time Note 12:42:10 Signed procedure consent form obtained from patient. 12:42:13 Procedure Status Elective Heart Cath (OP). 12:42:14 Time tracking: Regular hours (M-F 7:00 - 5:00) 12:42:17 Plan of Care:Hemodynamics will remain stable., Cardiac rhythm will remain stable., Comfort level will be maintained., Respiratory function will remain adequate., Patient/ family verbilizes understanding of procedure., Procedure tolerated without complication., Recovers from procedure without complications.. 12:43:31 Patient Weight : 189.6 lbs 12:43:36 Taye Dorantes RN sent for patient. Start room use. 12:44:04 Patient allergic to No known allergies 12:44:46 Lab Result : BUN 14 mg/dl 12:44:46 Lab Result : eGFR NONAFRICAN 87 ml/min 12:44:46 Lab Result : Creatinine 0.9 mg/dl 12:44:46 Lab Result : Hematocrit 45.5 % 12:44:46 Lab Result : Hemoglobin 16.1 g/dl 12:56:10 Patient received from Pre/Post Procedure Room to CCL 2 Alert and oriented. Tansferred to table in Supine position. 12:56:12 Warm blankets applied, and luis hugger turned on for patient comfort. 12:56:12 Correct patient and procedure confirmed by team. 12:56:12 ECG and BP/O2 sat monitors applied to patient. 13:03:41 Vital chart was started 13:03:43 Baseline sample Acquired. 13:03:50 Rhythm: sinus rhythm 13:03:52 Full Disclosure recording started 13:03:55 H&P Date Dictated: 03/25/2019 New H&P dictated by physician.. 13:03:56 Pre-procedure instructions explained to patient. 13:03:57 Pre-op teaching completed and patient verbalized understanding. 13:04:00 Family in patients room. 13:04:01 Patient NPO since Midnight. 13:04:02 Is patient on blood thinner?Yes 13:04:05 ACC The patient was administered the following blood thiners within the last 24 hours: ACCPlavix 13:04:06 Patient diabetic? No. 13:04:10 Previous problem with sedation/anesthesia? No ? 13:04:11 Snore? Yes 13:04:12 Sleep apnea? Yes 13:04:13 Deviated septum? No 13:04:14 Opens mouth fully? Yes 13:04:14 Sticks out tongue? Yes 13:04:16 Airway obstruction? No ? 13:04:19 Dentures? No ? 13:04:21 Pre procedure: right dorsailis pedis pulse 1+ Palpable, but thready & weak; easily obliterated 13:04:23 Patient pain scale 0/10 ?. 13:04:33 IV patent on arrival in left hand with 0.9% NaCl at [facility]. 13:04:36 Lab results completed and on chart. 13:04:39 Right groin area was prepped with chlora-prep and draped in sterile fashion 13:04:40 Alarms reviewed by R. N. 13:04:40 Sharps counted by scrub and verified by R.N. 13:04:50 Use device set CATH PACK 13:04:51 ACIST Syringe (47728) opened to sterile field. 13:04:52 ACIST Hand Control (99456) opened to sterile field. 13:04:52 ACIST Manifold (03338) opened to sterile field. 13:04:52 Medline Cath Pack ([id number]) opened to sterile field. 13:04:53 Bag Decanter (2002S) opened to sterile field. 13:04:53 EMERALD Guide Wire (667-054) opened to sterile field. 13:05:42 SHEATH 6FR [place] (QKL019) opened to sterile field. 13:05:42 INFLATOR Merit BasixCompak (JC7161) opened to sterile field. 13:05:43 WHISPER 300cm guide wire ([id number]) opened to sterile field. 13:07:03 Oxygen 2 l/min etCO2 Nasal cannula was administered by Taye Dorantes RN; used for procedure; 13:07:09 Lidocaine 2% 20ml vial added to field was administered by Kevin Vasquez MD; used for procedure; 13:07:19 Heparin Flush Bag (1000units/500ml NS) 2 bags added to field was administered by Kevin Vasquez MD; used for procedure; 13:07:28 0.9% NaCl 100 ml/hr I.V. was administered by Taye Dorantes RN; Per physician; 13:12:16 --------ALL STOP TIME OUT------ 13:12:17 Final Timeout: patient, procedure, and site verified with staff and physician. All members of the team are in agreement. 13:12:19 Right groin site verified by team. 13:12:21 Fire Safety Assessment: A--An alcohol-based skin anteseptic being used preoperatively., C--Open oxygen or nitrous oxide is being used., D--An ESU, laser, or fiber-optic light is being used. 13:12:24 Physical assessment completed. ASA score P 2 - A patient with mild systemic disease as per Kevin Vasquez MD. 13:12:31 2) 60-89 Mildly reduced kidney function, and other findings (as for stage 1) point to kidney disease. 13:12:37 Maximum allowable contrast dose (3.7 X eGFR X 0.75)241 ml. 13:12:41 Sedation plan: IV Moderate Sedation Medication:Versed, Fentanyl 13:13:21 Versed 2 mg I.V. was administered by Taye Dorantes RN; for sedation; 13:13:27 Fentanyl 100 mcg I.V. was administered by Taye Dorantes RN; for sedation; 13:18:01 Versed 2 mg I.V. was administered by Taye Dorantes RN; for sedation; 13:18:07 Fentanyl 100 mcg I.V. was administered by Taye Dorantes RN; for sedation; 13:20:57 Zero performed for pressure channel P1 13:21:08 GUIDE 6FR XBLAD 3.5 catheter ([id number]) opened to sterile field. 13:21:12 Procedure started. 13:21:25 Local anesthetic to right femoral artery with Lidocaine 2% by Kevin Vasquez MD.INITIAL ACCESS ONLY 13:23:19 A 6 Fr Short sheath was inserted into the Right Femoral artery 13:23:51 6 Fr XBLAD 3.5 guide catheter was inserted over the wire 13:25:56 Heparin Bolus 4000 units I.V. was administered by Taye Dorantes RN; for anticoagulation; verified with dr ball 13:26:07 Guide Catheter removed. unable to cannulate vessel. 13:26:13 GUIDE 6FR XBLAD 4.0 catheter ([id number]) opened to sterile field. 13:28:39 Versed 2 mg I.V. was administered by Taye Dorantes RN; for sedation; 13:31:18 WHISPER 300 wire advanced. 13:34:06 Wire advanced across lesion. 13:34:35 Place stent Inflation Number: 1 A SHERYL OTW 3.0 x 18 stent ([id number]) was prepped and advanced across the Ramus 80. The stent was deployed at 12 DEYANIRA for 0:20 (min:sec) 0. 13:35:15 Stent catheter was removed intact over wire. 13:35:15 Wire removed. 13:35:16 Guide catheter removed. 13:35:22 EXOSEAL 6Fr (EX600) opened to sterile field. 13:36:01 Sheath removed intact; hemostasis achieved with Exoseal to the Right Femoral artery. 13:36:03 Procedure ended.(Physican Out) 13:36:12 Fluoroscopy time 05.30 minutes. 13:36:15 Fluoroscopy dose: 815 mGy 13:36:15 Flurop Dose total: 815 13:36:20 Contrast amount:Isovue 300 80ml. 13:36:22 Maximum allowable dose exceeded? No. 13:36:45 ACT @ 235 13:36:47 Sharps counted by scrub and verified by R.N. 13:37:05 Post-op/insertion site Right Femoral artery dressed using a 4 x 4 and Tegaderm. 13:37:07 Post-procedure physical assessment completed. ASA score P 2 - A patient with mild systemic disease as per Kevin Vasquez MD. 13:37:09 Post procedure rhythm: sinus rhythm 13:37:14 Estimated blood loss: 10 ml 13:37:15 Post procedure instruction explained to patient.Patient verbalizes understanding. 13:37:15 Patient needs reinforcement of post procedure teaching. 13:37:48 Procedure type changed to Cath procedure, Diagnostic procedure, Sedation Charges, Moderate Sedation up to 30 minutes, PCI procedure, Coronary Stent, Coronary Stent Initial 13:38:09 Procedure and supply charges have been captured, reviewed, submitted and are correct. 13:38:12 Procedure Complication : No complications 13:38:14 Vital chart was stopped 13:38:14 See physician's report for complete and final results. 13:38:16 Report given to Pre/Post Procedure Room. 13:38:19 Patient transfered to Pre/Post Procedure Room with Bed. 13:38:22 Procedure ended. 13:38:22 Full Disclosure recording stopped 13:38:26 End room use (Document Last) Intervention Summary Intervention Notes Time ActionType Lesion and Equipment Action# Pressure Duration Attributes Used 13:34:35 Place stent Ramus SHERYL OTW 3.0 1 12 00:20 x 18 stent ([id number]) Device Usage Item Name Manufacture Quantity Catalog Hospital Part Current Mini mal Lot# / Number Charge Number Stock Stock Serial# Code ACIST Syringe Acist 1 53886 157026 344559 885489 20 (64678) Medical Systems Inc ACIST Hand Acist 1 59079 928448 864359 920394 5 Control Medical (13795) Systems Inc ACIST Acist 1 44688 793695 320140 374460 5 Manifold Medical (36207) Systems Inc Medline Cath Medline 1 [id number] 959775 25457 265063 5 Pack ([id number]) Bag Decanter Microtek 1 230509 87539 085374 5 (2002S) Medical Inc. EMERALD Guide Cardinal 1 502-226 844896 517125 939410 5 Wire Health (502455) SHEATH 6FR Terumo 1 [id number] 114621 976195 169147 40 [place] (ACL420) INFLATOR Merit 1 [id number] 490909 395385 991461 15 [facility] Medical BasixCompak (PR0828) WHISPER 300cm Mccabe 1 [id number] 263743 474669 143353 5 guide wire Vascular ([id number]) GUIDE 6FR Cardinal 1 [id number] 267960 009298 952195 10 XBLAD 3.5 Health catheter (27217013) GUIDE 6FR Cardinal 1 [id number] 818838 784192 373442 3 XBLAD 4.0 Health catheter (77771274) SHERYL OTW 3.0 Medtronic 1 [id number] 470780 0212312 329005 5 [id number] x 18 stent ([id number]) EXOSEAL 6Fr Cardinal 1 EX600 570665 522796 434967 10 (EX600) Health Signature Audit [place] Stage Time Signature Unsigned Intra-Procedure 03/25/2019 Kelsie Craven 1:42:44 PM RT(R) Signatures Performing Physician : Signature : Kevin Vasquez MD Date : Time : Monitor : Kelsie Craven Signature : RT Date : Time : Nurse : Taye Dorantes RN Signature : Date : Time : [facility] [address] [place] [address]
[~2019-03-25 11:08] MED LIST changes: +ATIVAN1 MG PO; +CELEBREX200 MG PO; +COZAAR25 MG PO
[2019-03-25 11:31] VITALS: BP 163/86; Ht 177.8 cm; Wt 86.4 kg
[2019-03-25 11:55] LABS: CALC OSMOLALITY 283 mosm/kg (275-300); CALCIUM 8.2 mg/dL (8.5-10.1); CARBON DIOXIDE 27.9 mmol/L (21.0-32.0); CHLORIDE - SERUM 106 mmol/L (98-107); CREATININE - SERUM 0.9 mg/dL (0.6-1.3); GLUCOSE 101 mg/dL (74-106); POTASSIUM - SERUM 4.2 mmol/L (3.5-5.1); SODIUM 142 mmol/L (136-145); UREA NITROGEN 14 mg/dL (7-18); eGFR NON AFRICAN AMERICAN 87 mL/min (90-120)
[2019-03-25 12:00] LABS: BASOPHILS 0.6 % (0-2); EOSINOPHILS 2.2 % (0-7); HEMATOCRIT 45.5 % (42.0-54.0); HEMOGLOBIN 16.1 g/dL (13.5-17.5); IMMATURE GRANULOCYTES 0.5 % (0-5); LYMPHOCYTES 23.1 % (15-50); MCH 32.7 pg (26.0-34.0); MCHC 35.4 g/dL (31.0-37.0); MCV 92.3 fL (80.0-100.0); MEAN PLATELET VOLUME 10.7 fL (7.4-10.4); MONOCYTES 8.2 % (2-11); NEUTROPHILS 65.4 % (40-80); PLATELET COUNT 203 10x3/uL (130-400); RBC 4.93 10x6/uL (4.20-6.10); WBC 6.5 10x3/uL (4.8-10.8)
--- NOTE | 2019-03-25 13:50 | NUR ---
PATIENT ARRIVED TO ROOM 6, PLACE ON CM. VSS. RIGHT GROIN DRESSING IS CDI, NO S/S OF BLEEDING OR HEMATOMA. PRESENT AT BEDSIDE, UPDATED BY PHYSICIAN.
--- NOTE | 2019-03-25 14:06 | NUR ---
PATIENT AWAKE, READING TABLET. VSS ON ROOM AIR. RIGHT GROIN DRESSING IS CDI, NO S/S OF BLEEDING OR HEMATOMA. NO C/O PAIN, NUMBNESS, OR TINGLING. NO N/V.
--- NOTE | 2019-03-25 14:35 | NUR ---
PATIENT AWAKE, EATING TURKEY SANDWICH. VSS ON ROOM AIR. RIGHT GROIN DRESSING IS CDI, NO S/S OF BLEEDING OR HEMATOMA. NO C/O PAIN, NUMBNESS, OR TINGLING. NO N/V.
--- NOTE | 2019-03-25 15:05 | NUR ---
PATIENT RESTING, VSS ON ROOM AIR. RIGHT GROIN DRESSING IS CDI, NO S/S OF BLEEDING OR HEMATOMA. NO C/O PAIN, NUMBNESS, OR TINGLING. PATIENT FINISHED EATING SANDWICH AND DRINKING JUICE, NO N/V.
--- NOTE | 2019-03-25 15:35 | NUR ---
PATIENT RESTING, VSS ON ROOM AIR. RIGHT GROIN DRESSING IS CDI, NO S/S OF BLEEDING OR HEMATOMA. NO C/O PAIN, NUMBNESS, OR TINGLING. NO N/V.
--- NOTE | 2019-03-25 16:05 | NUR ---
PATIENT RESTING, VSS ON ROOM AIR. RIGHT GROIN DRESSING IS CDI, NO S/S OF BLEEDING OR HEMATOMA. NO C/O PAIN, NUMBNESS, OR TINGLING. NO N/V.
--- NOTE | 2019-03-25 16:35 | NUR ---
HEAD OF BED ELEVATED TO 30 DEGREES. RIGHT GROIN DRESSING IS CDI, NO S/S OF BLEEDING OR HEMATOMA. NO C/O PAIN, NUMBNESS, OR TINGLING. NO N/V. TOLERATING PO FLUIDS.
--- NOTE | 2019-03-25 17:05 | NUR ---
HEAD OF BED AT 90 DEGREES. RIGHT GROIN DRESSING IS CDI, NO S/S OF BLEEDING OR HEMATOMA. NO C/O PAIN, NUMBNESS, OR TINGLING. VSS ON ROOM AIR. IV REMOVED.
--- NOTE | 2019-03-25 17:20 | NUR ---
WRITTEN AND VERBAL EDUCATION GIVEN TO PATIENT REGARDING DISCHARGE INSTRUCTIONS AND MEDICATION COMPLIANCE, PATIENT VOICES UNDERSTANDING. VSS ON ROOM AIR. RIGHT GROIN DRESSING IS CDI, NO S/S OF BLEEDING OR HEMATOMA. PATIENT REMOVED FROM MONITORS TO GET DRESSED. PATIENT VOIDED 300 ML CLEAR YELLOW URINE WITHOUT DIFFICULTY.
--- NOTE | 2019-03-25 17:27 | NUR ---
PATIENT TRANSPORTED VIA WHEELCHAIR TO CAR WITH SPOUSE DRIVING, ALL BELONGINGS WITH PATIENT.
--- NOTE | 2019-03-26 13:03 | HP ---
PATIENT: CHERYLE BERNARDO MEDICAL RECORD: [id number] ACCOUNT: [id number] LOCATION:JUAN : 41 ADMISSION DATE: 03/25/19 PCP: ILYA RICCI HISTORY AND PHYSICAL EXAMINATION HISTORY OF PRESENT ILLNESS: A 74-year-old gentleman with history of coronary artery disease, status post intervention to the LAD, who has been brought back for intervention to the ramus in a stage yoo fashion. PAST MEDICAL HISTORY: Includes; 1. Coronary artery disease. 2. Hypertension. 3. Hyperlipidemia. ALLERGIES: None known. MEDICATIONS: Typically, include Ambien 10 mg p.o. at bedtime, Celebrex 200 daily, aspirin 81 daily, losartan 25 daily, lisinopril 10 daily, and Plavix 75 daily. SOCIAL HISTORY: Nonsmoker and nondrinker. Easily takes care of all his ADLs. He does try to exercise on regular basis. PHYSICAL EXAMINATION: GENERAL: Well developed, well nourished, in no acute distress, appears stated age. HEENT: Normocephalic and atraumatic. NECK: No bruits noted. HEART: Regular. LUNGS: Craven clear. ABDOMEN: Soft and nontender. EXTREMITIES: Pulses 2+. No edema. IMPRESSION: Status post intervention to LAD. PLAN: Intervention to the circumflex today. TRANSINT:[id number] Voice Confirmation ID: [id number] DOCUMENT ID: [id number] ANUM HENLEY MD at 1303 CC: [id number] DICTATION DATE: 03/25/19 1250 CNC MACHINIST 2ND SHIFT: 03/25/19 1304 DEP CLI 03/25/19 [place] [id number] [place] [id number]
--- NOTE | 2019-03-26 13:03 | OP ---
PATIENT NAME: CHERYLE BERNARDO MEDICAL RECORD: [id number] :41 LOCATION:D.CAT ADMISSION DATE: SURGEON: ANUM HENLEY MD DATE OF OPERATION: 03/25/2019 PROCEDURE: PTCA stent. For previous report please see previous catheterization. DESCRIPTION OF PROCEDURE: A 6-[place] sheath was placed in right femoral artery. An XB LAD 4 guiding catheter provided good guide catheter support, followed by 300-cm Whisper wire, which was placed across the 80% stenosed ramus intermediate branch down the distal portion of the vessel. We then placed a 3.0 x 18 mm Rod drug-eluting stent up to 12 atmospheres for 45 seconds. Final angiography shows excellent resolution of the 80% stenosis, no significant residual. GAB flow was 3 throughout the procedure. Heparin was used in the case. The patient was previously on Plavix. Sheath was closed with ExoSeal device. TRANSINT:[id number] Voice Confirmation ID: [id number] DOCUMENT ID: [id number] ANUM HENLEY MD at 1303 CC: [id number] DICTATION DATE: 03/25/19 1346 LAB CLERK: 03/25/19 1405 DEP CLI 03/25/19 [facility] [address] [place] [address]
== END 2019-03-25 17:29 ==
LOC: D.CATH 11:08
PROVIDERS: ATTEND Internal Medicine Interventional Cardiology
DX: I25.119 Atherosclerotic heart disease of native coronary artery with unspecified angina pectoris (principal); Z01.812 Encounter for preprocedural laboratory examination